=== PATIENT | female | born 1945 | race Caucasian/White ===

== ENCOUNTER 2019-12-02 07:20 | Outpatient (CLI) | payer OTHER | END 2019-12-02 07:28 | disposition home or self-care (01) | LOC: EDBD 07:20 → NUCLEAR 07:20 | PROVIDERS: ATTEND Internal Medicine Cardiovascular Disease | DX: I25.6 Silent myocardial ischemia (principal); R07.2 Precordial pain | CPT/HCPCS: 78452; 93017; A9500 ==